=== PATIENT | male | born 1975 | race Caucasian/White ===

== ENCOUNTER → 2024-06-27 | Outpatient (CLI) | payer BC ==
--- NOTE | 2024-06-28 13:38 | CA ---
Transthoracic Echo Report Name: Jeremiah Christopher Age: 49 Gender: M : 1975 Exam Date: 06/27/2024 16:50 Exam Location: [facility] Ht (in): 71 Wt (lb): 240 Ordering Physician: Emily Carrion MD Attending/Referring Phys: Emily Carrion MD Nursing Officer Jenny Camacho, [facility] Procedure CPT: Indications: Z82.49 FAM HX ISCHEMIC HEART DISEASE, Encounter for screening for cardiovascular disorders, Chest pain, unspecified Cardiac Hx: Technical Quality: Fair Contrast 1: Total Dose (mL): Contrast 2: Total Dose (mL): MEASUREMENTS (Male / Female) Normal Values 2D ECHO LV Diastolic Diameter PLAX 4.6 cm 4.2 - 5.9 / 3.9 - 5.3 cm LV Systolic Diameter PLAX 3.2 cm IVS Diastolic Thickness 1.3 cm 0.6 - 1.0 / 0.6 - 0.9 cm LVPW Diastolic Thickness 1.7 cm 0.6 - 1.0 / 0.6 - 0.9 cm LV Relative Wall Thickness 0.7 RV Internal Dim ED PLAX 2.9 cm LA Systolic Diameter LX 4.2 cm 3.0 - 4.0 / 2.7 - 3.8 cm LV Diastolic Volume MOD BP 74.0 cm??? 67 - 155 / 56 - 104 cm??? LV Systolic Volume MOD BP 39.2 cm??? 22 - 58 / 19 - 49 cm??? LV Ejection Fraction MOD BP 47.1 % >= 55 % LV Cardiac Index MOD BP 852.9 cm???/min???m??? LV Diastolic Volume MOD 4C 71.8 cm??? LV Systolic Volume MOD 4C 36.0 cm??? LV Ejection Fraction MOD 4C 49.8 % LV Cardiac Index MOD 4C 874.5 cm???/min???m??? LV Diastolic Length 4C 7.8 cm LV Systolic Length 4C 7.1 cm LV Diastolic Volume MOD 2C 76.3 cm??? LV Systolic Volume MOD 2C 39.2 cm??? LV Ejection Fraction MOD 2C 48.7 % LV Cardiac Index MOD 2C 908.7 cm???/min???m??? LV Diastolic Length 2C 7.6 cm LV Systolic Length 2C 6.5 cm LA Volume 74.6 cm??? 18 - 58 / 22 - 52 cm??? LA Volume Index 31.5 cm???/m??? 16 - 28 cm???/m??? M-MODE Aortic Root Diameter MM 3.9 cm LA Systolic Diameter MM 3.2 cm LA Ao Ratio MM 0.8 AV Cusp Separation MM 2.4 cm DOPPLER MV Area PHT 2.5 cm??? Mitral E Point Velocity 78.8 cm/s Mitral A Point Velocity 71.3 cm/s Mitral E to A Ratio 1.1 MV Deceleration Time 303.5 ms FINDINGS Left Ventricle Left ventricular ejection fraction is estimated at 55-60 %. Mildly increased septal wall thickness.Normal left ventricular systolic function with no obvious regional wall motion abnormalities. Right Ventricle Normal right ventricular size and function. Right ventricular systolic pressure within normal limits. Right Atrium Mild right atrial dilatation. Left Atrium Mildly increased left atrial diameter. Mildly increased left atrial volume. Mildly increased left atrial area. Mitral Valve Structurally normal mitral valve. Trace mitral regurgitation. No mitral stenosis. Aortic Valve Trileaflet aortic valve.trace aortic regurgitation. No aortic stenosis. Tricuspid Valve Structurally normal tricuspid valve. Trace tricuspid regurgitation. No tricuspid stenosis. Pulmonic Valve Structurally normal pulmonic valve. Trace pulmonic regurgitation. No pulmonic stenosis. Pericardium No pericardial or pleural effusion. Aorta Mild aortic dilatation at the level of the sinuses of valsalva (root). CONCLUSIONS LVEF 55 to 60% No obvious regional wall motion abnormality Mild concentric LVH Normal RV size and systolic function Mild biatrial dilatation No significant valvular dysfunction Previewed by: Dr Willie Martin (Electronically Signed) Final Date: 28 June 2024 13:37
== END | disposition home or self-care (01) ==
LOC: RADECHMAIN 16:42
PROVIDERS: ATTEND Family Medicine
DX: I25.10 Atherosclerotic heart disease of native coronary artery without angina pectoris (principal); Z82.49 Family history of ischemic heart disease and other diseases of the circulatory system
CPT/HCPCS: 93306